=== PATIENT | female | born 1980 | race African-American/Black ===

== ENCOUNTER 2020-03-23 23:19 | Emergency (ER) | payer SELFPAY ==
[~2020-03-23] VITALS: Ht 157.5 cm; Wt 77.0 kg
[2020-03-23 23:39] VITALS: BP 137/85
== END 2020-03-24 00:52 | disposition left against medical advice (07) ==
LOC: ER 23:19
DX: H57.12 Ocular pain, left eye (principal); Z53.21 Procedure and treatment not carried out due to patient leaving prior to being seen by health care provider